=== PATIENT | female | born 1975 | race Caucasian/White ===

== ENCOUNTER 2020-08-11 10:07 | Inpatient (IN) ==
--- NOTE | 2020-08-11 10:53 | Emergency Department Note ---
History of Present Illness General Chief complaint: Weakness Stated complaint: CHEMO TREATMENT THIS WEEK,WEAKNESS,CANT EAT OR DRI Time Seen by Provider: 08/11/20 10:35 Source: patient and family (Boyfriend who is at the bedside) Mode of arrival: ambulatory Limitations: no limitations History of Present Illness This patient comes in after having weakness. She has a history of metastatic breast cancer that has metastasized to the spine bone and liver. She is followed by her doctor at [facility] and has no local physician at this point. She had a cough and shortness of breath on the and had a chest x-ray and negative Covid test at [facility]. She had chemo on this past Tuesday with Abraxine. Her liver functions were elevated as an outpatient with AST of 1500 and ALT of 500. She is try biologic agents in the past with issues with her liver as well. Denies dysuria hematuria she has a rash for the last several days around her injection sites just in the abdomen primarily. No nausea vomiting diarrhea although she does feel dehydrated and weak. She says she passed out last night. She also had a low-grade temperature with a T-max last night of 100.8 Home Medications Home Medications Medication Instructions Recorded Confirmed Type dexamethasone 4 mg PO UD 08/11/20 08/11/20 History levothyroxine [Synthroid] 44 mcg PO DAILY 08/11/20 08/11/20 History lorazepam 0.5 mg PO UD 08/11/20 08/11/20 History ondansetron HCl 8 mg PO UD 08/11/20 08/11/20 History paclitaxel-protein bound [Abraxane] 0 mg IV UD 08/11/20 08/11/20 History prochlorperazine maleate 10 mg PO UD 08/11/20 08/11/20 History Allergies Allergy/AdvReac Type Severity Reaction Status Date / Time No Known Allergies Allergy Unverified 09/17/16 11:31 Past Med/Surg History Medical History BRCA gene mutation positive Breast cancer Hypothyroidism Family History Mother BRCA positive Social History Smoking Status: Never smoker Preferred Language: Yi Feels Safe at Home: Yes Immunizations: Past medical historymetastatic breast cancer Review of Systems A total of 10 systems reviewed and were otherwise negative Physical Exam Vital Signs Vital Signs - 24 hr 08/11/20 10:29 08/11/20 11:15 08/11/20 11:30 Temperature 37.6 C H Temperature Source Oral Pulse Rate 112 H 105 H 98 H Pulse Rate from SpO2 Sensor Pulse Rhythm Regular Pulse Strength Normal Respiratory Rate 18 18 20 Respiratory Effort / Characteristics Non-Labored Spontaneous Respiratory Depth Normal Respiratory Pattern Regular Blood Pressure 106/69 Blood Pressure Mean 81 Blood Pressure Position Sitting Pulse Oximetry 99 Oxygen Delivery Method Room Air Sepsis Recent Fever Within 48 Hours No Sepsis New/Unexplained Change in Mental Status No Sepsis Action Taken by Nursing No Action Required 08/11/20 11:48 08/11/20 11:49 08/11/20 11:57 Temperature Temperature Source Pulse Rate 94 H 94 H Pulse Rate from SpO2 Sensor 94 H Pulse Rhythm Pulse Strength Respiratory Rate 18 16 Respiratory Effort / Characteristics Respiratory Depth Respiratory Pattern Blood Pressure 114/75 Blood Pressure Mean 84 Blood Pressure Position Pulse Oximetry 95 95 92 Oxygen Delivery Method Room Air Room Air Sepsis Recent Fever Within 48 Hours Sepsis New/Unexplained Change in Mental Status Sepsis Action Taken by Nursing 08/11/20 12:00 08/11/20 12:01 08/11/20 12:30 Temperature Temperature Source Pulse Rate 85 83 80 Pulse Rate from SpO2 Sensor 83 83 79 Pulse Rhythm Pulse Strength Respiratory Rate 16 23 21 Respiratory Effort / Characteristics Respiratory Depth Respiratory Pattern Blood Pressure 114/79 121/76 Blood Pressure Mean 86 80 Blood Pressure Position Pulse Oximetry 96 96 99 Oxygen Delivery Method Sepsis Recent Fever Within 48 Hours Sepsis New/Unexplained Change in Mental Status Sepsis Action Taken by Nursing 08/11/20 12:31 08/11/20 13:00 08/11/20 13:01 Temperature Temperature Source Pulse Rate 82 88 86 Pulse Rate from SpO2 Sensor 81 88 87 Pulse Rhythm Pulse Strength Respiratory Rate 22 21 22 Respiratory Effort / Characteristics Respiratory Depth Respiratory Pattern Blood Pressure 114/72 Blood Pressure Mean 82 Blood Pressure Position Pulse Oximetry 95 95 95 Oxygen Delivery Method Sepsis Recent Fever Within 48 Hours Sepsis New/Unexplained Change in Mental Status Sepsis Action Taken by Nursing 08/11/20 13:30 08/11/20 14:00 08/11/20 14:01 Temperature Temperature Source Pulse Rate 95 H 82 84 Pulse Rate from SpO2 Sensor 96 H 82 85 Pulse Rhythm Pulse Strength Respiratory Rate 20 20 22 Respiratory Effort / Characteristics Respiratory Depth Respiratory Pattern Blood Pressure 118/74 114/73 Blood Pressure Mean 75 78 Blood Pressure Position Pulse Oximetry 94 95 96 Oxygen Delivery Method Sepsis Recent Fever Within 48 Hours Sepsis New/Unexplained Change in Mental Status Sepsis Action Taken by Nursing 08/11/20 14:53 08/11/20 15:00 08/11/20 15:30 Temperature Temperature Source Pulse Rate 85 93 H 86 Pulse Rate from SpO2 Sensor 86 93 H 86 Pulse Rhythm Pulse Strength Respiratory Rate 27 H 26 H 22 Respiratory Effort / Characteristics Respiratory Depth Respiratory Pattern Blood Pressure 116/73 113/76 114/78 Blood Pressure Mean 76 83 85 Blood Pressure Position Pulse Oximetry 96 95 94 Oxygen Delivery Method Sepsis Recent Fever Within 48 Hours Sepsis New/Unexplained Change in Mental Status Sepsis Action Taken by Nursing General: Well developed well nourished somewhat cachectic older female who appears in no acute distress, breathing comfortably on room air. Normal speech HEENT: Normal cephalic atraumatic. Pupils are equal round and reactive to light. Extraocular movements are intact. Oropharynx is pink with moist mucous membranes. No swelling of the mouth lips or tongue. Neck: Supple with a midline trachea. No meningeal signs or stiffness, no JVD or bruits. No Stridor. Chest: Clear to auscultation bilaterally. No wheezes or rhonchi. No increased work of breathing. Heart: Regular rate and rhythm without murmurs or gallops. Abdomen: Soft nontender, nondistended without rebound guarding or rigidity. Extremities: No cyanosis clubbing or edema. No calf tenderness or assymetry Spine/Back. Non tender to palpation. No CVA tenderness Skin: Good turgor without rashes. He has a rash in the lower abdomen that is red it does katherine for the most part but she does have some nonblanching small areas as well. its not warm. Neurologic exam: Cranial nerves two through 12 are intact. Motor and sensation are intact and symmetrical throughout. Course Administered Medications Discontinued Medications Sodium Chloride (Nss 1000ml) 1,000 mls @ 999 mls/hr IV .Q1H1M KIRK Stop: 08/11/20 12:00 Last Infusion: 08/11/20 12:59 Dose: 0 mls/hr Documented by: [id number] Admin: 08/11/20 11:57 Dose: 999 mls/hr Documented by: [id number] Cefepime HCl (Maxipime) 20 mls @ 5 mls/min IV NOW ONE Stop: 08/11/20 12:18 Last Admin: 08/11/20 13:06 Dose: 5 mls/min Documented by: [id number] Sodium Chloride (Nss 1000ml) 500 mls @ 999 mls/hr IV .Q31M ONE Stop: 08/11/20 13:30 Last Infusion: 08/11/20 13:35 Dose: 0 mls/hr Documented by: [id number] Admin: 08/11/20 13:05 Dose: 999 mls/hr Documented by: [id number] Critical Care Time Critical Care Time: Yes Total Critical Care Time: 30 Due to the patient's febrile neutropenia, concern for infection, syncope, and other hydration and concerns, I have personally spent greater than 30 minutes of critical care time in the direct management of this patient. This includes bedside care, interpretation of diagnostic studies, and testing, discussion with consultants, patient, and family members, and other required patient management activities. This 30 minutes is in excess of all separately billable procedures. Medical Decision Making Differential Diagnosis Sepsis, UTI, therapeutic complication, dehydration, electrolyte or metabolic abnormality, pneumonia, Covid, liver failure Medical Records Attestation: I reviewed the patient's medical records. Home Medications Current Medication List: was personally reviewed by me Laboratory Data Attestation: I reviewed the patient's lab results. Result diagrams: 08/11/20 11:20 08/11/20 11:20 Lab Results 08/11/20 08/11/20 08/11/20 Range/Units 11:20 11:20 11:20 WBC 0.59 L* (4.8-10.8) K/uL RBC 3.88 L (4.2-5.4) M/uL Hgb 12.3 (12.0-16.0) g/dL Hct 35.8 L (37-47) % MCV 92.3 (80-100) fL MCH 31.7 (25-34) pg MCHC 34.4 (32-36) g/dL RDW Std Deviation 54.8 H (36.4-46.3) fL RDW Coeff of Lenny 16.2 H (11.5-14.5) % Plt Count 88 L (130-400) K/uL Immature Gran % (Auto) 0.0 % Neut % (Auto) 5.1 % Lymph % (Auto) 66.1 % [place] % (Auto) 28.8 % Eos % (Auto) 0.0 % Baso % (Auto) 0.0 % Neut # (Auto) 0.03 L* (1.4-6.5) K/uL Lymph # (Auto) 0.39 L (1.2-3.4) K/uL [place] # (Auto) 0.17 (0.11-0.59) K/uL Eos # (Auto) 0.00 (0-0.5) K/uL Baso # (Auto) 0.00 (0-0.2) K/uL Immature Gran # (Auto) 0.00 (0.00-0.02) K/uL Platelet Estimate Decreased L (Normal) Poikilocytosis Present Ovalocytes 1+ PT 11.5 (9.0-12.0) Seconds INR 1.1 (0.9-1.1) APTT 41.4 H (21.0-31.0) Seconds PTT Ratio 1.5 Sodium 133 L (136-145) mmol/L Potassium 4.1 (3.5-5.1) mmol/L Chloride 98 (98-107) mmol/L Carbon Dioxide 27 (21-32) mmol/L Anion Gap 8.0 (3-11) BUN 13 (7-18) mg/dl Creatinine 0.80 (0.6-1.2) mg/dl Est Cr Clr Drug Dosing 81.6 ml/min Est GFR ( Amer) 104.7 Est GFR (Non-Af Amer) 90.3 BUN/Creatinine Ratio 16.6 (10-20) Glucose 102 H (70-99) mg/dl Lactate (0.4-2.0) mmol/L Calcium 8.1 L (8.5-10.1) mg/dl Magnesium 2.1 (1.8-2.4) mg/dl Total Bilirubin 1.3 H (0.2-1) mg/dl AST 1419 H (15-37) U/L ALT 562 H (12-78) U/L Alkaline Phosphatase 426 H (45-117) U/L Troponin I < 0.015 (0-0.045) ng/ml Total Protein 6.2 L (6.4-8.2) gm/dl Albumin 3.0 L (3.4-5.0) gm/dl Globulin 3.2 (2.5-4.0) gm/dl Albumin/Globulin Ratio 0.9 (0.9-2) Specimen Hemolysis Blood Type Antibody Screen 08/11/20 08/11/20 Range/Units 11:32 11:55 WBC (4.8-10.8) K/uL RBC (4.2-5.4) M/uL Hgb (12.0-16.0) g/dL Hct (37-47) % MCV (80-100) fL MCH (25-34) pg MCHC (32-36) g/dL RDW Std Deviation (36.4-46.3) fL RDW Coeff of Lenny (11.5-14.5) % Plt Count (130-400) K/uL Immature Gran % (Auto) % Neut % (Auto) % Lymph % (Auto) % [place] % (Auto) % Eos % (Auto) % Baso % (Auto) % Neut # (Auto) (1.4-6.5) K/uL Lymph # (Auto) (1.2-3.4) K/uL [place] # (Auto) (0.11-0.59) K/uL Eos # (Auto) (0-0.5) K/uL Baso # (Auto) (0-0.2) K/uL Immature Gran # (Auto) (0.00-0.02) K/uL Platelet Estimate (Normal) Poikilocytosis Ovalocytes PT (9.0-12.0) Seconds INR (0.9-1.1) APTT (21.0-31.0) Seconds PTT Ratio Sodium (136-145) mmol/L Potassium (3.5-5.1) mmol/L Chloride (98-107) mmol/L Carbon Dioxide (21-32) mmol/L Anion Gap (3-11) BUN (7-18) mg/dl Creatinine (0.6-1.2) mg/dl Est Cr Clr Drug Dosing ml/min Est GFR ( Amer) Est GFR (Non-Af Amer) BUN/Creatinine Ratio (10-20) Glucose (70-99) mg/dl Lactate 1.8 (0.4-2.0) mmol/L Calcium (8.5-10.1) mg/dl Magnesium (1.8-2.4) mg/dl Total Bilirubin (0.2-1) mg/dl AST (15-37) U/L ALT (12-78) U/L Alkaline Phosphatase (45-117) U/L Troponin I (0-0.045) ng/ml Total Protein (6.4-8.2) gm/dl Albumin (3.4-5.0) gm/dl Globulin (2.5-4.0) gm/dl Albumin/Globulin Ratio (0.9-2) Specimen Hemolysis Blood Type AB Negative Antibody Screen NEGATIVE Imaging Data Attestation: I personally reviewed and interpreted this imaging study as follows: My Impression: Chest x-rayno acute infiltrate, failure, pneumothorax seen Radiologist's Impression: XR chest 1V portable HISTORY: SEPSIS COMPARISON: None. FINDINGS: The lungs are clear. Cardiac silhouette is normal in size. No pleural effusions. No pneumothorax. IMPRESSION: No acute process. ECG Data Attestation: I personally reviewed and interpreted this ECG as follows: Indication: + syncope and + weakness Rate (beats per minute): 87 Rhythm: + normal sinus ECG Intervals/blocks: + Normal QRS, + Normal QT and + Normal NH ECG [place]: + Normal ECG ST segments: + Normal ST segments ECG Findings: no PACs and no PVCs Comparison ECG Date: no prior available MDM Narrative This patient comes in as scribed above. She does a history of metastatic breast cancer and has had several days worth of just feeling generally weak among other symptoms. She has a low-grade temperature as well. She was seen by her regular doctor this past week and sent here for evaluation of her liver functions being elevated. IV asked established and a full sepsis work-up was obtained. she was given 1 liter IV normal saline bolus. He was also given cefepime 2 g IV. blood cultures were obtained as well as urinalysis and culture. She was found to be neutropenic. Her hemoglobin and platelets are stable. She still has elevation of her liver functions that are in the same range as before. Chest x-ray was clear. She has been Covid test within the last week for similar symptoms, I do not feel this is likely Covid. At this point she has had stable vital signs and normal lactic acid and does not appear to be septic but is certainly at risk being neutropenic. She also may have had a syncopal episode which was likely related to hydration. I did consult the [facility] hospitalist group as the patient has no primary care physician at this point and I do think she needs to be admitted for IV antibiotics observation further treatment and evaluation. Continuous cardiac monitoring: Order was placed in the EMR for continuous cardiac monitoring. The patient was noted to have normal sinus rhythm with a rate of 85. Impression & Plan Febrile neutropenia, Weakness, Breast carcinoma metastatic to multiple sites, Acute dehydration Discharge Plan Visit Data Chief Complaint: Weakness Stated Complaint: CHEMO TREATMENT THIS WEEK,WEAKNESS,CANT EAT OR DRI ED Provider: Kalyan Zhang Discharge Problem: Febrile neutropenia, Weakness, Breast carcinoma metastatic to multiple sites, Acute dehydration Forms Stand Alone Forms: My [facility] Prescriptions Prescriptions: No Action ondansetron HCl 8 mg tablet 8 mg PO UD RF: 0 prochlorperazine maleate 10 mg tablet 10 mg PO UD RF: 0 levothyroxine [Synthroid] 88 mcg tablet 44 mcg PO DAILY RF: 0 lorazepam 0.5 mg tablet 0.5 mg PO UD RF: 0 dexamethasone 4 mg tablet 4 mg PO UD RF: 0 Abraxane 100 mg Suspension For Reconstitution 0 mg IV UD RF: 0 Discharge Problem: Breast carcinoma metastatic to multiple sites Qualifiers: Laterality: unspecified laterality Qualified Code(s): C50.919 - Malignant neopl asm of unspecified site of unspecified female breast
[2020-08-11] MEDS ORDERED: SODIUM CHLORIDE 0.9% 1000ML 1,000 ML IV SCH (11:00)
--- NOTE | 2020-08-11 11:46 | XRay Report ---
XR chest 1V portable HISTORY: SEPSIS COMPARISON: None. FINDINGS: The lungs are clear. Cardiac silhouette is normal in size. No pleural effusions. No pneumot horax. IMPRESSION: No acute process. ACT 112: Negative or not required by law. Electronically signed by: Olegario Dennis M.D. 08/11/2020 11:45 AM
[2020-08-11 12:03] LABS: Hematocrit (blood only) 35.8 % (37-47); Hemoglobin 12.3 g/dL (12.0-16.0); Lymphocytes # (auto) 0.39 K/uL (1.2-3.4); Lymphocytes % (auto) 66.1 %; Mean Corpuscular Hemoglobin 31.7 pg (25-34); Mean Corpuscular Hgb Conc 34.4 g/dL (32-36); Mean Corpuscular Volume 92.3 fL (80-100); Monocytes # (auto) 0.17 K/uL (0.11-0.59); Monocytes % (auto) 28.8 %; Neutrophils # (auto) 0.03 K/uL (1.4-6.5); Neutrophils % (auto) 5.1 %; Platelet Count 88 K/uL (130-400); RDW Coefficient of Variation 16.2 % (11.5-14.5); RDW Standard Deviation 54.8 fL (36.4-46.3); Red Blood Count 3.88 M/uL (4.2-5.4); White Blood Count 0.59 K/uL (4.8-10.8)
[2020-08-11 12:04] LABS: Ovalocytes 1+; Platelet Estimate Decreased (Normal); Poikilocytosis Present
[2020-08-11 12:08] LABS: INR 1.1 (0.9-1.1); Partial Thromboplastin Ratio 1.5; Partial Thromboplastin Time 41.4 Seconds (21.0-31.0); Prothrombin Time 11.5 Seconds (9.0-12.0)
[2020-08-11 12:12] LABS: Alanine Aminotransferase 562 U/L (12-78); Albumin Globulin Ratio 0.9 (0.9-2); Alkaline Phosphatase 426 U/L (45-117); Aspartate Aminotransferase 1419 U/L (15-37); BUN Creatinine Ratio 16.6 (10-20); Bilirubin,Total 1.3 mg/dl (0.2-1); Blood Urea Nitrogen 13 mg/dl (7-18); Calcium 8.1 mg/dl (8.5-10.1); Carbon Dioxide 27 mmol/L (21-32); Chloride 98 mmol/L (98-107); Creatinine Clr Calc Pharmacy 81.6 ml/min; Est GFR (African American) 104.7; Est GFR (Non-African American) 90.3; Globulin 3.2 gm/dl (2.5-4.0); Glucose 102 mg/dl (70-99); Magnesium 2.1 mg/dl (1.8-2.4); Potassium 4.1 mmol/L (3.5-5.1); Sodium 133 mmol/L (136-145); Total Protein 6.2 gm/dl (6.4-8.2); Troponin I < 0.015 ng/ml (0-0.045)
[2020-08-11] MEDS ORDERED: CEFEPIME 20 ML IV ONE (12:15)
[2020-08-11] MEDS ORDERED: SODIUM CHLORIDE 0.9% 1000ML 500 ML IV ONE (13:00)
--- NOTE | 2020-08-11 15:25 | History & Physical Report ---
Date of Service August 11, 2020 Assessment & Plan (1) Febrile neutropenia: Temperature up to 100.8 at home last night. - Blood cultures drawn in ED; UA done also. - CXR done today is clear. Covid done on 08/04/2020 which was negative at [place]. No cough, shortness of breath, no Covid contacts. Low concern for present Covid infection. - Continue vancomycin/cefepime - Will get MRSA swab. If negative, will then stop vancomycin, as I do not see any Staph source of infection. (2) Breast cancer: BRCA2(+). Follows with Torrie Hughes and Hernandez Mcknight at [facility] ([phone]). Initially diagnosed in 2011. Had been on a clinical trial for BRCA suppression, but cancer progressed in 05/2020. Was most recently on palbociclib (Ibrance - CDK4/6 inhibitor) because it was presumed the hormone receptor part of her cancer had advanced. However, this was stopped on 07/29/2020 due to rising LFTs. - Received 1st dose of paclitaxel on 08/06/2020. - Had been using Neupogen through yesterday, but will hold with suprapubic rash. - Discussed with [facility] oncology (Hernandez) on 08/11 -> Ok holding further Neupogen. (3) Hypothyroidism: No TSH in the charts. - Continue levothyroxine 44 mcg PO daily - Check TSH (4) DVT prophylaxis: Lovenox 40 mg SQ daily History of Present Illness Primary Care Provider: NO PCP 44yo F w/ hx of breast cancer and hypothyroidism who presents with weakness and syncopal episode last night. She has not felt well for at least 2 weeks. She has been on a variety of cancer therapies since 2011 when she was diagnosed. She was most recently on Ibrance in early July, but this was stopped when her LFTs went too high (peaked at ~1600 per patient). She has been off Ibrance since 07/29/2020. She got her first dose of Abraxane (paclitaxel) on 08/06/2020. She reports she has just felt tired and lethargic. Last night, she had some prodromal, presyncopal symptoms and then fell. She was able to catch herself and didn't hit her head or loss full consciousness. At the time, her temperature was 100.8, but rechecks were within normal range. She called her oncologist who recommended she come to the hospital. She denies any nausea, vomiting, diarrhea. No pain. She does have a rash along her lower quadrants and suprapubic area which developed where she was giving herself Neupogen. Allergies Allergy/AdvReac Type Severity Reaction Status Date / Time No Known Allergies Allergy Unverified 09/17/16 11:31 Home Medications Home Medications Medication Instructions Recorded Confirmed Type dexamethasone 4 mg PO UD 08/11/20 08/11/20 History levothyroxine [Synthroid] 44 mcg PO DAILY 08/11/20 08/11/20 History lorazepam 0.5 mg PO UD 08/11/20 08/11/20 History ondansetron HCl 8 mg PO UD 08/11/20 08/11/20 History paclitaxel-protein bound [Abraxane] 0 mg IV UD 08/11/20 08/11/20 History prochlorperazine maleate 10 mg PO UD 08/11/20 08/11/20 History Past Med/Surg History Medical History BRCA gene mutation positive Breast cancer Hypothyroidism Family History Mother BRCA positive Social History Smoking Status: Never smoker Preferred Language: Polish Feels Safe at Home: Yes Review of Systems Review of Systems: All systems reviewed & are unremarkable except as noted in HPI & below Physical Exam Constitutional: WD/WN, vitals as above Eyes: EOM intact bilaterally; no conjunctival abnormality ENMT: external ear and nose normal, oropharynx normal Neck: trachea midline, no thyromegaly normal visual inspection Respiratory: normal respiratory effort, lungs clear to auscultation no respiratory distress Cardiovascular: RRR, no murmur, no edema Gastrointestinal (Abdomen): Inspection/Auscultation: abdomen normal to inspection; abdomen not distended Musculoskeletal: no cyanosis or clubbing, extremities motor strength 5/5 Skin: + purpura (Along lower abdomen and suprapubic region) Neurologic: moves all extremities and awake Psychiatric: Orientation: alert, oriented to person and cooperative Results & Data Results & Data ([facility]) Vital Signs (Past 12 Hours) Vital Signs Temp Pulse Resp BP Pulse Ox 08/11/20 14:01 84 22 96 08/11/20 14:00 82 20 114/73 95 08/11/20 13:30 95 H 20 118/74 94 08/11/20 13:01 86 22 95 08/11/20 13:00 88 21 114/72 95 08/11/20 12:31 82 22 95 08/11/20 12:30 80 21 121/76 99 08/11/20 12:01 83 23 96 08/11/20 12:00 85 16 114/79 96 08/11/20 11:57 94 H 16 114/75 92 08/11/20 11:49 95 08/11/20 11:48 94 H 18 95 08/11/20 11:30 98 H 20 08/11/20 11:15 105 H 18 08/11/20 10:29 37.6 C H 112 H 18 106/69 99 PG Care Time/CCT Total # of Minutes Spent Total Time Spent with Patient: Total time spent is greater than 50% in coordination of care (as documented) at patient's floor/unit and/or counseling patient: Coding Level of Care Code 71701 Initial Inpt Care Lvl 3 Diagnoses Febrile neutropenia D70.9; R50.81 Breast cancer C50.919 Hypothyroidism E03.9 DVT prophylaxis Z29.9
[2020-08-11 17:11] LABS: Appearance Urine Cloudy (Clear); Bacteria Urine Automated Negative (Negative); Bilirubin Urine Negative (Negative); Blood Urine Negative (Negative); Color Urine Dark Yellow; Epithelial Cell Urine Auto 0-5 /lpf (0-5); Glucose Urine UA Negative (Negative); Ketones Urine Trace (Negative); Leukocyte Esterase Urine Negative (Negative); Nitrite Urine Negative (Negative); Protein Urine 1+ (Negative); RBC Urine Automated 0-4 /hpf (0-4); Specific Gravity Urine 1.016 (1.000-1.030); Urobilinogen Urine Negative (Negative); pH Urine 5.5 (4.5-7.5)
[2020-08-11] MEDS ORDERED: VANCOMYCIN CONSULT ACTIVE PRN (17:11)
[2020-08-11] MEDS ORDERED: PROCHLORPERAZINE MALEATE 10 MG TAB PO SCH ×2 (17:11)
[2020-08-11] MEDS ORDERED: NON-FORMULARY MEDICATION (Ondansetron Hcl 8 MG) PO SCH ×2 (17:11)
[2020-08-11] MEDS ORDERED: ACETAMINOPHEN 325 MG TAB PO PRN (17:11)
[2020-08-11] MEDS ORDERED: ONDANSETRON INJ 2 MG/ML 2 ML VIAL IV PRN (17:11)
[2020-08-11] MEDS ORDERED: LORazepam 0.5 MG TAB PO SCH ×2 (17:11)
[2020-08-11] MEDS ORDERED: dexAMETHasone 4 MG TAB PO SCH ×2 (17:11)
[2020-08-11] MEDS ORDERED: VANCOMYCIN HCL 1,000 MG/270 ML BAG IV STA (17:11)
[2020-08-11] MEDS ORDERED: VANCOMYCIN HCL 1,500 MG in SODIUM CHLORIDE 0.9% 500 ML IV ONE (17:30)
[2020-08-11] MEDS: NORMOSOL-R 1,000 ML IV SCH (17:36)
[2020-08-11] MEDS: CEFEPIME 2,000 MG in SYRINGE 0 ML IV SCH (21:33)
[2020-08-11] MEDS ORDERED: COUGH DROP (SUGAR FREE) LOZ 24 LOZ/1 BOX BUCCAL ONE (21:43)
[2020-08-12] MEDS: NORMOSOL-R 1,000 ML IV SCH ×3 (01:16→17:03)
--- NOTE | 2020-08-12 03:05 | Communication Note ---
Date of Service: August 12, 2020 Per nursing, MRSA swab order needed. Resulted negative, and vancomycin discontinued. 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
--- NOTE | 2020-08-12 05:26 | Electrocardiogram Report ---
Test Reason : Blood Pressure : / mmHG Vent. Rate : 087 BPM Atrial Rate : 087 BPM P-R Int : 138 ms QRS Dur : 082 ms QT Int : 376 ms P-R-T Axes : 075 046 062 degrees QTc Int : 452 ms Poor data quality, interpretation may be adversely affected Normal sinus rhythm Possible Left atrial enlargement Borderline ECG No previous ECGs available Confirmed by Fabricio Girard ([id number]) on 08/12/2020 5:26:00 AM Referred By: REFERRED SELF Confirmed By:Fabricio Girard
[2020-08-12] MEDS: LEVOTHYROXINE SODIUM 88 MCG TABLET PO SCH (06:11)
[2020-08-12] MEDS ORDERED: VANCOMYCIN HCL 1,250 MG in SODIUM CHLORIDE 0.9% 250 ML IV SCH (07:00)
[2020-08-12 07:39] LABS: Hematocrit (blood only) 29.6 % (37-47); Hemoglobin 10.2 g/dL (12.0-16.0); Mean Corpuscular Hemoglobin 31.9 pg (25-34); Mean Corpuscular Hgb Conc 34.5 g/dL (32-36); Mean Corpuscular Volume 92.5 fL (80-100); Platelet Count 132 K/uL (130-400); RDW Coefficient of Variation 16.2 % (11.5-14.5); RDW Standard Deviation 55.3 fL (36.4-46.3); White Blood Count 1.09 K/uL (4.8-10.8)
[2020-08-12 07:53] LABS: Albumin Level 2.2 gm/dl (3.4-5.0); BUN Creatinine Ratio 14.4 (10-20); Calcium 6.9 mg/dl (8.5-10.1); Creatinine Clr Calc Pharmacy 99.9 ml/min; Est GFR (African American) 125.4; Est GFR (Non-African American) 108.2; Magnesium 2.3 mg/dl (1.8-2.4)
[2020-08-12 07:56] LABS: Albumin Globulin Ratio 0.8 (0.9-2); Bilirubin,Total 0.9 mg/dl (0.2-1); Globulin 2.6 gm/dl (2.5-4.0); Phosphorus 1.7 mg/dl (2.5-4.9); Thyroid Stimulating Hormone 2.35 uIu/ml (0.300-4.500); Total Protein 4.8 gm/dl (6.4-8.2)
[2020-08-12 08:03] LABS: ALC (manual) 0.76 K/uL (1.2-3.4); ANC (manual) 0.01 K/uL (1.4-6.5); Basophils # (manual) 0.01 K/uL (0-0.2); Basophils % (manual) 0.9 %; Lymphocytes # (manual) 0.76 K/uL (1.2-3.4); Lymphocytes % (manual) 69.4 %; Monocytes # (manual) 0.31 K/uL (0.11-0.59); Monocytes % (manual) 28.8 %; Neutrophils # (manual) 0.01 K/uL (1.4-6.5); Neutrophils % (manual) 0.9 %; Ovalocytes 1+; Platelet Estimate Decreased (Normal); Tear Drop Cells 1+
[2020-08-12] MEDS: CEFEPIME 2,000 MG in SYRINGE 0 ML IV SCH ×2 (08:43→20:57)
[2020-08-12] MEDS: ENOXAPARIN INJ 30 MG/0.3 ML SYR SQ SCH (08:44)
--- NOTE | 2020-08-12 13:48 | Palliative Care Consultation ---
Date of Consultation August 12, 2020 Assessment & Plan (1) Palliative care encounter: Kelsy has been very focused on the details of her cancer treatment as a coping tool. 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 She has been monitoring her own labs. She recognizes that her condition is terminal but says multiple times during visit that "I don't think I need to worry about that yet". She has considered her goals for treatment in the past and reports that she had an advance directive at one point that indicated DNR. She does not feel that is accurate at this point. Spending time with her nieces is an important quality of life issue for her and she would be willing to pursue treatment that would allow her more time with them. That would include resuscitation and intubation if indicated. 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 She is worried about her parents having to make difficult medical decisions on her behalf and has indicated that she would want her significant other, Faisal Tanner, to be her surrogate decision maker. We discussed completing document to name him medical power of sand hauler but she declines that at this time. She has told him that she would want him to "pull the plug" and feels that he would know what she wants to do. With regard to her anorexia, dexamethasone is effective for stimulating appetite, helping with pain from bone mets and increasing her energy level. We could consider increasing this to 4mg BID though I'm not sure how that would work with her cancer treatment at [facility]. Thank you for allowing us to participate in her care. We will f/u tomorrow to further address this issue. (2) Breast carcinoma metastatic to multiple sites: Laterality: unspecified laterality Qualified Code(s): C50.919 - Malignant neoplasm of unspecified site of unspecified female breast (3) Acute dehydration: History of Present Illness Reason for Consultation: Support, symptom management, goals of care Requesting Physician: Dr. Yates Attending Physician: Ciro Hunter DO History of Present Illness 44 yo lady diagnosed with Stage IV breast cancer 8 years ago. [facility] this area. She has known mets to liver, vertebrae and bone. She was admitted with neutropenic fever after weakness and a fall at home. She has elevated liver transaminases and hypocalcemia. She also has an albumin of 2.2. 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 She reports feeling somewhat better with fluids but admits to poor appetite and difficulty eating drinking, even though she knows that she should. She denies abdominal pain, nausea or difficulty swallowing. Allergies Allergy/AdvReac Type Severity Reaction Status Date / Time No Known Allergies Allergy Unverified 09/17/16 11:31 Home Medications Home Medications Medication Instructions Recorded Confirmed Type dexamethasone 4 mg PO UD 08/11/20 08/11/20 History levothyroxine [Synthroid] 44 mcg PO DAILY 08/11/20 08/11/20 History lorazepam 0.5 mg PO UD 08/11/20 08/11/20 History ondansetron HCl 8 mg PO UD 08/11/20 08/11/20 History paclitaxel-protein bound [Abraxane] 0 mg IV UD 08/11/20 08/11/20 History prochlorperazine maleate 10 mg PO UD 08/11/20 08/11/20 History Patient History Medical History BRCA gene mutation positive Breast cancer Hypothyroidism Family History Mother BRCA positive Social History Smoking Status: Never smoker Hx Alcohol Use: No Hx Substance Use: No Preferred Language: [place]guill[place] Communication Ability: Effective Road Cutter Required: No Beliefs That Will Affect Care: None marital status: Life Partner Current Living Situation: Spouse Feels Safe at Home: Yes Assistive Devices: None Review of Systems Constitutional: + fatigue and + anorexia Eyes: no worsening vision Ear, Nose, Mouth, Throat: dry mouth Respiratory: + cough Cardiovascular: no chest pain and no palpitations Gastrointestinal: no abdominal pain, no nausea and no vomiting Musculoskeletal: no joint pain Integumentary: no rash Neurologic: + generalized weakness Psychiatric: no hopelessness and no anhedonia Physical Exam Constitutional: no acute distress ENMT: epistaxis left nostril Neck: normal visual inspection Respiratory: normal respiratory effort; no labored breathing Cardiovascular: Extremities: no edema Gastrointestinal (Abdomen): Inspection/Auscultation: abdomen not distended Musculoskeletal: Extremities: strength 5/5 throughout Skin: warm and dry Neurologic: no focal motor deficits Psychiatric: Orientation: alert and oriented x 3 Results & Data ([facility]) Vital Signs (Past 12 Hours) Vital Signs Temp Pulse Resp BP Pulse Ox 08/12/20 07:50 98.6 F 08/12/20 07:40 99.7 F H 102 H 18 102/69 93 PG Care Time/CCT Total # of Minutes Spent Total Time Spent with Patient: Total time spent is greater than 50% in coordination of care (as documented) at patient's floor/unit and/or counseling patient: 75minutes with 60 minutes spent on addressing goals of care and symptom management. Coding Level of Care Code 06873 Inpt Consult Level 4 Diagnoses Palliative care encounter Z51.5 Breast carcinoma metastatic to multiple sites C50.919 Laterality: unspecified laterality Acute dehydration E86.0 Time Spent (min) 75 Comment [id number]
[2020-08-12] MEDS ORDERED: SODIUM CHLORIDE 0.65% NA SOLN 45 ML (OCEAN) ONE (16:59)
--- NOTE | 2020-08-12 18:22 | Hospitalist Progress Note ---
Date of Service August 12, 2020 Assessment & Plan (1) Febrile neutropenia: fortunately nonspecific and improving. vanco stopped overnight - MRSA nares neg - continue to follow. continue cefepime for now. trend cultures, serial exams. hopefully home tomorrow on PO abx. (2) Breast cancer: -with metastases to liver, bone, and spine BRCA2(+). Follows with Torrie Hughes and Hernandez Mcknight at [facility] ([phone]). Initially diagnosed in 2011. Had been on a clinical trial for BRCA suppression, but cancer progressed in 05/2020. Was most recently on palbociclib (Ibrance - CDK4/6 inhibitor) because it was presumed the hormone receptor part of her cancer had advanced. However, this was stopped on 07/29/2020 due to rising LFTs. - Received 1st dose of paclitaxel on 08/06/2020. - Had been using Neupogen through 08/10, but will hold with suprapubic rash. - admitting hospitalist discussed with [facility] oncology (Hernandez) on 08/11 -> Ok holding further Neupogen. (3) Failure to thrive: appears that change to chemo has led to poor intake/appetite -discussed calorie goals (~1600 per day) and multiple ways to achieve this -discussed fluid goals (by maintenance fluid calculations would actually be about 80oz per day, during our discussions set a lower goal of 60 by estimate, but will readdress) (4) Hypothyroidism: TSH 2.35 - Continue levothyroxine 44 mcg PO daily (5) DVT prophylaxis: Lovenox 40 mg SQ daily Admission and Anticipated Discharge Date Admission Date: August 11, 2020 Subjective feeling better - still feels weak - hasn't really been up and around a lot yet - notes that the biggest thing that she realized was easy fatiguability. hasn't been walking much since in hospital room - but did note feeling better pretty quickly w fluids. mouth ulcers got in the way of eating -with hindight she sees that she definitely was not doing well eating or drinking last few days leading up to admission. no further fevers a little bit of short of breath - for a few weeks more BAPTISTE as noted above. maybe a little bit of a cough unchanged. no chest pain no dysuria no other focal sx Review of Systems Review of Systems: All systems reviewed & are unremarkable except as noted in HPI & below Physical Exam Physical Exam: gen aaox3 pleasant nad heent nc at mmm diffuse multiple ulcers on tongue no white plaques neck full ROM cardio reg no r/m/g lungs cta b/l no r/r/w good effort skin blanching macular rash on lower abdomen nontender/nonpruritic no pallor or icterus neuro no focal deficits Results & Data Results & Data ([facility]) Vital Signs (Past 12 Hours) Vital Signs Temp Pulse Resp BP Pulse Ox 08/12/20 15:16 98.4 F 78 16 117/77 97 08/12/20 07:50 98.6 F 08/12/20 07:40 99.7 F H 102 H 18 102/69 93 PG Care Time/CCT Total # of Minutes Spent Total Time Spent with Patient: Total time spent is greater than 50% in coordination of care (as documented) at patient's floor/unit and/or counseling patient: Coding Level of Care Code 10665 Subseq Hosp Care Lvl 3 Diagnoses Febrile neutropenia D70.9; R50.81 Breast cancer C50.919 Failure to thrive Hypothyroidism E03.9 DVT prophylaxis Z29.9
--- NOTE | 2020-08-12 23:23 | Communication Note ---
Date of Service: August 12, 2020 Notified by nursing that pt is requesting that palliative not return in the AM. She also requested that the consult be discontinued. Advised that they will be informed of her decision and the palliative care consult was discontinued. 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
[2020-08-13] MEDS: NORMOSOL-R 1,000 ML IV SCH ×2 (01:23→08:16)
[2020-08-13] MEDS: LEVOTHYROXINE SODIUM 88 MCG TABLET PO SCH (06:11)
[2020-08-13 07:37] LABS: Hematocrit (blood only) 29.3 % (37-47); Mean Corpuscular Hemoglobin 31.8 pg (25-34); Mean Corpuscular Hgb Conc 34.1 g/dL (32-36); Mean Corpuscular Volume 93.3 fL (80-100); Mean Platelet Volume 12.7 fL (7.4-10.4); Platelet Count 181 K/uL (130-400); RDW Coefficient of Variation 16.3 % (11.5-14.5); RDW Standard Deviation 55.5 fL (36.4-46.3); Red Blood Count 3.14 M/uL (4.2-5.4)
[2020-08-13 08:08] LABS: Albumin Level 2.2 gm/dl (3.4-5.0); BUN Creatinine Ratio 16.1 (10-20); Creatinine Clr Calc Pharmacy 124.5 ml/min; Est GFR (African American) 134.8; Est GFR (Non-African American) 116.3; Potassium 3.9 mmol/L (3.5-5.1)
[2020-08-13 08:11] LABS: Albumin Globulin Ratio 0.8 (0.9-2); Bilirubin,Total 0.8 mg/dl (0.2-1); Globulin 2.6 gm/dl (2.5-4.0); Total Protein 4.8 gm/dl (6.4-8.2)
[2020-08-13] MEDS: ENOXAPARIN INJ 30 MG/0.3 ML SYR SQ SCH (08:17)
[2020-08-13] MEDS: CEFEPIME 2,000 MG in SYRINGE 0 ML IV SCH (08:18)
[2020-08-13 08:21] LABS: Ovalocytes 1+
[2020-08-13 08:22] LABS: ANC (manual) 0.06 K/uL (1.4-6.5); Basophils # (manual) 0.02 K/uL (0-0.2); Basophils % (manual) 0.9 %; Blast # (manual) 0.02 K/uL (0-0); Blast Cells % (manual) 0.9 %; Metamyelocytes # (manual) 0.04 K/uL (0-0); Metamyelocytes % (manual) 2.6 %; Monocytes # (manual) 0.55 K/uL (0.11-0.59); Monocytes % (manual) 32.2 %; Myelocytes # (manual) 0.02 K/uL (0-0); Myelocytes % (manual) 0.9 %; Neutrophils # (manual) 0.06 K/uL (1.4-6.5); Neutrophils % (manual) 3.5 %
--- NOTE | 2020-08-13 18:09 | Discharge Summary ---
Date of Service August 13, 2020 Admission HPI Per Admitting Provider 44yo F w/ hx of breast cancer and hypothyroidism who presents with weakness and syncopal episode last night. She has not felt well for at least 2 weeks. She has been on a variety of cancer therapies since 2011 when she was diagnosed. She was most recently on Ibrance in early July, but this was stopped when her LFTs went too high (peaked at ~1600 per patient). She has been off Ibrance since 07/29/2020. She got her first dose of Abraxane (paclitaxel) on 08/06/2020. She reports she has just felt tired and lethargic. Last night, she had some prodromal, presyncopal symptoms and then fell. She was able to catch herself and didn't hit her head or loss full consciousness. At the time, her temperature was 100.8, but rechecks were within normal range. She called her oncologist who recommended she come to the hospital. She denies any nausea, vomiting, diarrhea. No pain. She does have a rash along her lower quadrants and suprapubic area which developed where she was giving herself Neupogen. Principal Diagnosis neutropenic fever malnutrition/dehydration Discharge Exam gen aaox3 pleasant nad heent nc at mmm ulcers on tongue less pronoucned and healing breathing unlabored no accessory muscles good effort skin no rashes no pallor or icterus neuro no focal deficits Discharge Data Allergies Allergy/AdvReac Type Severity Reaction Status Date / Time No Known Allergies Allergy Unverified 09/17/16 11:31 Consultations 08/11/20 13:01 ED Decision to Admit Stat Hospital Course (1) Febrile neutropenia: fortunately nonspecific and improving. initially on vanco and cefepime, MRSA nares neg and low suspicion MRSA infection --> vanco stopped. further serial exams and no focal findings, cultures still negative --> safe for home. discussed continuing broad gram negative coverage w quinolone but higher risk for side effect vs narrower coverage w cefdinir - both she and i agreed narrower coverage and immediate re-eval if any worsening - but with no focal findings and negative cultures - highly unlikely to worsen. (2) Breast cancer: -with metastases to liver, bone, and spine BRCA2(+). Follows with Torrie Hughes and Hernandez Mcknight at [facility] ([phone]). Initially diagnosed in 2011. Had been on a clinical trial for BRCA suppression, but cancer progressed in 05/2020. Was most recently on palbociclib (Ibrance - CDK4/6 inhibitor) because it was presumed the hormone receptor part of her cancer had advanced. However, this was stopped on 07/29/2020 due to rising LFTs. - Received 1st dose of paclitaxel on 08/06/2020. - Had been using Neupogen through 08/10, but held with suprapubic rash. - admitting hospitalist discussed with [facility] oncology (Hernandez) on 08/11 -> Ok holding further Neupogen. (3) Failure to thrive: appears that change to chemo has led to poor intake/appetite -discussed calorie goals (~1600 per day) and multiple ways to achieve this -discussed fluid goals (by maintenance fluid calculations would actually be about 80oz per day, during our discussions set a lower goal of at least 60 by estimate, but would want her having higher amounts at least the days prior to chemo) (4) Hypothyroidism: TSH 2.35 - Continue levothyroxine 44 mcg PO daily (5) DVT prophylaxis: Lovenox 40 mg SQ daily Total Time Total Time Spent Total Time Spent (In Minutes): >30 Discharge Plan Discharge Items Patient Disposition: Home - Self-Care Reason For Visit: NEUTROPENIC FEVER Discharge Diagnosis: Neutropenic Fever Activity: Resume your previous activity Non-emergency contact: Primary Care Provider and Oncologist Call non-emergency contact if: you have any medication questions, your symptoms worsen, your pain is not controlled and you have a fever Follow-up/Referrals: Quoc Alberts MD [Primary Care Provider] - 08/22/20 12:50 pm (A follow up appointment has been made for you with Dr. Alberts on Aug.22 at 12:50pm.) Diet: Regular Addtl Attending Provider Instructions: first of all i apologize for the delay - i had everything done and saved in your instructions around 1:30 as promised, and the computer system lost them, while appearing to have been saved from my perspective. so i am so sorry about that. neutropenic fever -as we discussed, fortunately while you came in with a temperature and a very suppressed immune system, there ended up being no clear source of infection (no pneumonia, bloodstream infection, UTI, skin infection, etc). conventionally we still cover situations like yours with antibiotics for a week. the cefepime that you were on IV has no actual oral equivalent - and the oral antibiotics that cover a similar spectrum of bacteria (quinolones) are much more side effect riddled. as we talked - since your counts improved and your temperature resolved without a "footprint" it makes more sense to complete our antibiotic coverage with something that will be easier to tolerate - cefdinir. it covers the large majority of the bacteria that cefepime does - and typically the one type of bacteria (pseudomonas) that is covered by cefepime that is not by cefdinir is not subtle. to this end, we also preserve the quinolone class of antibiotics for potential use in the future if you were to run into repeated infections related to the chemo (obviously the more we use an antibiotic the more chance we have of creating resistant bacteria). the main "rule for safety" here would just be if you were to have a temp in the next 24-48 hours the antibiotics might just need to be escalated to the quinolone class of antibiotics nutrition -once people have to shift over to chemotherapy - nutrition and hydration issues often become a major issue to keep on top of -as an added problem - when people get behind with nutrition or hydration, frequently being dehydrated or a bit malnourished creates a malaise that makes you lose your appetite further -nutrition - your "basal energy expenditure" shows that at minimum we want you to take in 1600 calories a day. in a perfect world, that will be 1600 calories of lean protein, fruits, and vegetables -- however, if you're not feeling well, it's going to be better to get to 1600 calories with boost and ice cream rather than not getting there at all --hydration - ideally, we'll also have you get to 80 ounces of fluids a day. this is probably a harder to achieve goal than the 1600 calories - but i suspect that on most days as long as you get to 60 ounces you should be getting in enough (particularly if you're not feeling dizzy/lightheaded/etc). as we discussed, a couple days before each chemo i would recommend that you try to get in a full 80 ounces, as many patients through the years have anectodally told me they tolerate their chemo way better if they are well hydrated before hand -track your calories. i can't emphasize enough how often people will overestimate what they are eating/drinking (and then come up short of goal) when they don't actually keep a log of what they eat/drink. there are a number of good apps that are free that can make this easy (LoseIt, MyFitnessPal, CalorieKing, among others) - just be aware that since they are made to guide people to weight loss, the [place] will of course encourage you to do the opposite of what we're trying to achieve (it will be happy with you when you come up short on calories, rather than the other way around) PCP -most people with a cancer journey do better when they have a "2 quarterback system" -- where the oncologist is looking after [id number], and the family doc is looking after the rest. typically then the family doc will be checking on how you're doing with nutrition/hydration/symptoms/side effects/etc and helping trouble shoot and get you back on course before things have gotten too far off kilter. we're getting you set up with [facility] medicine - they should be calling to get you an appointment soon. as we discussed, the one problem with the office is they will often try too hard to find appointments that are convenient rather than always getting you in with the same doc. for situations like yours, continuity is hugely important --> so once we've got you established just emphasize when scheduling follow up appointments that you need to be seeing the same doc. Pending Studies at Discharge: No Stand-Alone Forms: [facility], Smoking Cessation Medications and DC Order Prescriptions: New cefdinir 300 mg capsule 300 mg PO BID 5 Days Qty: 10 RF: 0 Continued ondansetron HCl 8 mg tablet 8 mg PO UD RF: 0 prochlorperazine maleate 10 mg tablet 10 mg PO UD RF: 0 levothyroxine [Synthroid] 88 mcg tablet 44 mcg PO DAILY RF: 0 lorazepam 0.5 mg tablet 0.5 mg PO UD RF: 0 dexamethasone 4 mg tablet 4 mg PO UD RF: 0 Abraxane 100 mg Suspension For Reconstitution 0 mg IV UD RF: 0 Discharge Orders: Discharge Order (Routine); Ordered 08/13/20 Ordered By: Ciro Hunter Admission Data Admit Date/Time: 08/11/20 14:09 Attending Provider: Ciro Hunter Admit Provider: Ronna Lane Primary Care Provider: Quoc Alberts Other Providers: Palmira Menendez Other Interventions: Discharge Summary Assessment (RN) Last Done: 08/13/20 14:19 Coding Level of Care Code D/C Day Management >30 mins Diagnoses Febrile neutropenia D70.9; R50.81 Breast cancer C50.919 Failure to thrive Hypothyroidism E03.9 DVT prophylaxis Z29.9
== END 2020-08-13 17:53 | disposition home or self-care (01) | DRG 809 ==
LOC: ED 10:07 → 3E 14:09